=== PATIENT | male | born 1965 | race American Indian/Alaskan Native ===

== ENCOUNTER 2016-11-09 21:22 | Emergency (ER) | payer OTHER ==
[2016-11-09 21:59] VITALS: BP 150/89; PULSE 68; RESP 20; TEMP 98.4; O2SAT 97
[2016-11-09] MEDS ORDERED: Epinephrine /Lidocaine HCL 1:100,000/2% 30 ml INJ ONE (22:06)
[2016-11-09] MEDS ORDERED: Lidocaine 2% w Epi 1:100,000 Inj IJ ONE (22:53)
[2016-11-09] MEDS ORDERED: Bacitracin 500 Units/gm Oint Foilpak UD TOP ONE (23:40)
--- NOTE | 2016-11-09 23:51 | C.PDOC ---
History Of Present Illness Patient is a 51 year old male who presents to the ER with a left forearm laceration after he cut himself with glass while throwing out garbage at work. Patient notes this occurred at 06:00, denies fever, rash, or other injury. Time Seen by Provider: 11/09/16 21:48 Chief Complaint (Nursing): Abnormal Skin Integrity History Per: Patient History/Exam Limitations: no limitations Onset/Duration Of Symptoms: Hrs (Occurred at 06:00) Current Symptoms Are (Timing): Still Present Location Of Injury: Left: Forearm (Laceration) Quality Of Symptoms: Swollen, Other (Laceration) Recent travel outside of the [place]: No Past Medical History Reviewed: Historical Data, Nursing Documentation, Vital Signs Vital Signs: Last Vital Signs Temp 98.4 F 11/09/16 21:55 Pulse 68 11/09/16 21:55 Resp 20 11/09/16 21:55 BP 150/89 11/09/16 21:55 Pulse Ox 97 11/10/16 00:35 - Medical History PMH: No Chronic Diseases Surgical History: No Surg Hx Family History: States: Unknown Family Hx - Social History Hx Alcohol Use: No Hx Substance Use: No - Immunization History Hx Tetanus Toxoid Vaccination: No Hx Influenza Vaccination: No Hx Pneumococcal Vaccination: No Review Of Systems Constitutional: Negative for: Fever Musculoskeletal: Positive for: Arm Pain (Left forearm Laceration) Skin: Negative for: Rash Physical Exam - Physical Exam Appears: Well, Non-toxic Skin: Normal Color, Warm, Dry Head: Atraumatic, Normacephalic Eye(s): bilateral: Normal Inspection, PERRL, EOMI Oral Mucosa: Moist Extremity: Normal ROM, No Tenderness, Capillary Refill (< 2 sec), Other (2cm linear laceration to posterior forearm) Extremity: Bilateral: Normal Color And Temperature Pulses: Left Radial: Normal, Right Radial: Normal Neurological/Psych: Oriented x3, Normal Speech, Normal Cognition, Normal Motor, Normal Sensation Gait: Steady ED Course And Treatment O2 Sat by Pulse Oximetry: 97 (Room air) Pulse Ox Interpretation: Normal - Other Rad forearm X-Ray: Interpreted by Me Interpretation: There is a radio-opaque object in the area which is an incidental finding as it is different area than the wound. Progress Note: X-ray of left forearm ordered. Bacitracin and tetanus administered. Laceration - Laceration Repair Left forearm Wound Length (In cm): 2cm Description Of Wound: Linear Wound Cleansed With: Betadine, Sterile Saline Anesthesia: Lidocaine 2%, With Epi Wound Examination: Irrigated With Saline, No FB With Wound Exploration, No Tendon Injury With Wound Exploration Wound Closure: [place]ell (three), Suture (two deep dermal sutures were placed using 3-0 plain gut) Suture Technique And Material Used: Nylon (one 3-0 nylon placed), Vicryl Wound Complexity: Intermediate Medical Decision Making Medical Decision Making: The patient was instructed antibiotics will be given as the wound is > 12hours open and there is a risk of infection. Patient was also informed that there is a possible foreign body in the arm but not at the area of the wound. Wound was cleansed using copious amounts of pressurized saline inside the wound and was explored. No foreign body was found but patient was instructed that there may be small traces inside. Tetanus was administered. Patient was instructed to follow up with either the medical doctor or return to the ED in 2 days for wound check without fail. Disposition - Disposition Referrals: Saw Rivear MD [Staff Provider] - Dejuan Lake MD [Staff Provider] - Uma Urrutia MD [Staff Provider] - Katherine Mcdermott MD [Staff Provider] - Disposition: HOME/ ROUTINE Disposition Time: 00:00 Condition: GOOD Additional Instructions: Clean the wound twice a day with soap and water and apply bacitracin. KEEP IT COVERED. Prescriptions: Bacitracin OINT 1 applic TP BID #2 tube Cephalexin [cephalexin] 500 mg PO BID #10 cap Instructions: Laceration (ED) Forms: Work Excuse - POA Present On Arrival: None - Clinical Impression Clinical Impression: Arm laceration - Scribe Statement The provider has reviewed the documentation as recorded by the Scribe Sylvester Jolly All medical record entries made by the Scribe were at my direction and personally dictated by me. I have reviewed the chart and agree that the record accurately reflects my personal performance of the history, physical exam, medical decision making, and the department course for this patient. I have also personally directed, reviewed, and agree with the discharge instructions and disposition.
[2016-11-10] MEDS ORDERED: Bacitracin 500 Units/gm Oint Foilpak UD ONE (00:04)
--- NOTE | 2016-11-10 08:50 | RAD ---
PROCEDURE: Radiographs of the Left Forearm HISTORY: laceration with glass to proximal forearm COMPARISON: None available. TECHNIQUE: Frontal and lateral views obtained. FINDINGS: BONES: No fracture or destructive lesion. JOINT SPACES: Unremarkable. OTHER FINDINGS: There is radiopaque foreign body at the mid lateral aspect of the forearm measures approximately 2.2 millimeter. IMPRESSION: Approximately 2.2 millimeter radiopaque foreign body at the midportion of the left for arm.
== END 2016-11-10 00:12 | disposition home or self-care (01) ==
LOC: C.ER 21:22
DX: S51.812A Laceration without foreign body of left forearm, initial encounter (principal); W25.XXXA Contact with sharp glass, initial encounter; Y93.89 Activity, other specified; Y92.89 Other specified places as the place of occurrence of the external cause; Y99.0 Civilian activity done for income or pay

== ENCOUNTER 2016-11-26 13:37 | Emergency (ER) | payer MEDICAID, OTHER ==
[2016-11-26 13:43] VITALS: PULSE 78; RESP 20; TEMP 98.2; O2SAT 98
--- NOTE | 2016-11-26 14:05 | C.PDOC ---
History Of Present Illness 51 y/o male presents to the ED requesting suture/staple removal. Pt was seen for laceration to left forearm when sutures and anisa were placed. Denies any other injury or complaint. Pt denies signs of infection. Time Seen by Provider: 11/26/16 13:46 Chief Complaint (Nursing): Suture/Staple Removal History Per: Patient History/Exam Limitations: no limitations Onset/Duration Of Symptoms: Days Ago Current Symptoms Are (Timing): Better Severity: Mild Recent travel outside of the [place]: No Past Medical History Reviewed: Historical Data, Nursing Documentation, Vital Signs Vital Signs: Last Vital Signs Temp 98.2 F 11/26/16 13:41 Pulse 78 11/26/16 13:41 Resp 20 11/26/16 13:41 BP 134/75 11/26/16 14:48 Pulse Ox 98 11/26/16 14:08 Family History: States: Unknown Family Hx - Social History Hx Alcohol Use: No Hx Substance Use: No - Immunization History Hx Tetanus Toxoid Vaccination: No Hx Influenza Vaccination: No Hx Pneumococcal Vaccination: No Review Of Systems Constitutional: Negative for: Fever, Chills Skin: Positive for: Other (suture/staple removal) Physical Exam - Physical Exam Appears: Non-toxic, No Acute Distress Skin: Warm, Dry, No Rash, Other (healed wound to left lateral forearm with 3 anisa and [address], no signs of infection) Head: Atraumatic, Normacephalic Extremity: Normal ROM, Capillary Refill (<2 seconds) Neurological/Psych: Oriented x3, Normal Speech, Normal Motor, Normal Sensation ED Course And Treatment O2 Sat by Pulse Oximetry: 98 (room air) Pulse Ox Interpretation: Normal Progress Note: Removed all anisa and suture. Wound clean, no signs of infection. Disposition - Disposition Disposition: HOME/ ROUTINE Disposition Time: 03:00 Condition: GOOD Additional Instructions: return to er with worsening symptoms or concerns. Instructions: Stitches Removal (ED), Staple Care (ED) - Clinical Impression Clinical Impression: Removal of suture, Removal of staple - Scribe Statement The provider has reviewed the documentation as recorded by the Edna Galvez Provider Attestation: All medical record entries made by the Edna were at my direction and personally dictated by me. I have reviewed the chart and agree that the record accurately reflects my personal performance of the history, physical exam, medical decision making, and the department course for this patient. I have also personally directed, reviewed, and agree with the discharge instructions and disposition.
[2016-11-26 14:48] VITALS: BP 134/75
== END 2016-11-26 14:49 | disposition home or self-care (01) ==
LOC: C.ER 13:37
DX: Z48.02 Encounter for removal of sutures (principal)